=== PATIENT | male | born 1955 | race Caucasian/White ===

== ENCOUNTER 2021-09-16 08:41 | Emergency (ER) | payer MEDICARE ==
[2021-09-16 08:50] VITALS: RESP 18; TEMP 98.1
[2021-09-16] MEDS ORDERED: SODIUM CHLORIDE 0.9% 1,000 ML IV STA (08:53)
[2021-09-16] MEDS ORDERED: METOCLOPRAMIDE 5 MG/ML 2 ML VIAL IVP STA (08:53)
--- NOTE | 2021-09-16 09:11 | ED ---
Dizziness HPI - General Chief Complaint: Dizziness Stated Complaint: Dizziness, Nausea & vomiting Time Seen by Provider: 09/16/21 08:44 Source: patient, EMS, RN notes reviewed Mode of arrival: EMS - History of Present Illness Initial Comments: This is a 65-year-old male who presents to the emergency department for dizziness. Patient states that this began yesterday and came on gradually. This was triggered by positional changes and he describes a room spinning sensation. This morning when he woke up, the symptoms seemed worse. He again had the dizziness with a room spinning sensation and had associated nausea and vomiting. He has never had any similar symptoms in the past. Denies any associated diaphoresis, chest pain, or shortness of breath. Denies any recent illness or hx of heart attacks or strokes. Denies any fevers, chills, sore throat, cough, dyspnea, chest pain, palpitations, abdominal pain, diarrhea, back pain, or headaches. MD Complaint: dizziness Onset/Timin Timing: gradual onset Description: "room spinning", lightheadedness, off-balance History of Same: No History of Trauma: No Improves With: remaining still - Related Data Previous Rx's Medication Instructions Recorded Meclizine [Antivert] 25 mg PO TID PRN #20 tab 09/16/21 Metoclopramide [Reglan] 5 mg PO Q6H PRN #20 tab 09/16/21 Ondansetron [Zofran] 4 mg PO Q8HR PRN #20 tab 09/16/21 Allergies Allergy/AdvReac Type Severity Reaction Status Date / Time Penicillins AdvReac Unknown Verified 09/16/21 08:50 Review of Systems ROS Statement: Those systems with pertinent positive or pertinent negative responses have been documented in the HPI. ROS Other: All systems not noted in ROS Statement are negative. Past Medical History Past Medical History: Hypertension History of Any Multi-Drug Resistant Organisms: None Reported Past Surgical History: No Surgical Hx Reported Smoking Status: Current every day smoker Past Alcohol Use History: Daily Past Drug Use History: Marijuana General Exam General appearance: alert, in no apparent distress Head exam: Present: atraumatic, normocephalic, normal inspection Eye exam: Present: normal appearance, PERRL, EOMI. Absent: scleral icterus, conjunctival injection, periorbital swelling Pupils: Present: normal accommodation ENT exam: Present: normal exam, mucous membranes moist, TM's normal bilaterally, normal external ear exam Neck exam: Present: normal inspection. Absent: tenderness, meningismus, lymphadenopathy Respiratory exam: Present: normal lung sounds bilaterally. Absent: respiratory distress, wheezes, rales, rhonchi, stridor Cardiovascular Exam: Present: regular rate, normal rhythm, normal heart sounds. Absent: systolic murmur, diastolic murmur, rubs, gallop, clicks Neurological exam: Present: alert, oriented X3, CN II-XII intact, normal gait, other (Negative HINTS Exam) Psychiatric exam: Present: normal affect, normal mood Skin exam: Present: warm, dry, intact, normal color. Absent: rash Course Vital Signs 09/16/21 09/16/21 09/16/21 08:44 09:49 11:46 Temperature 98.1 F Pulse Rate 61 62 66 Respiratory 18 18 18 Rate Blood Pressure 154/85 145/84 134/81 O2 Sat by Pulse 97 95 96 Oximetry EKG Findings - EKG Comments: EKG Findings:: Normal sinus rhythm. Ventricular rate 62 bpm, ID interval 156 ms, QRS duration 84 ms, QTC 407 ms. Medical Decision Making - Medical Decision Making This is a 65-year-old male who presents to the emergency department for dizziness. Lab work was nonactionable, the patient exhibits no neurological deficits, and his EKG and troponin were both negative. HINTS exam for central lesion was negative. Based on the room spinning sensation and dizziness triggered by positional changes, this is most likely a vertigo. He reported marked improvement with IV fluids and Reglan. Prescription for Zofran, Reglan, and Antivert sent to the pharmacy for future episodes. Also advised he look into the half somersault maneuver by Dr. Yolanda Menendez for symptomatic management. Prior to discharge, patient states that he has been experiencing hot flashes intermittently for several months. Discussed that I will add thyroid studies to his lab work and contact him with the results if they are abnormal. He will otherwise follow up with his primary care provider regarding the vertigo and this complaint of hot flashes. Return precautions reviewed in depth, the patient is instructed to return to the emergency department with any new, worsening, or concerning symptoms. Patient verbalized understanding. This case was discussed in detail with the attending ED physician. Presentation, findings, and treatment plan discussed in detail as well. - Lab Data Result diagrams: 09/16/21 09:03 09/16/21 09:03 Lab Results 09/16/21 09/16/21 09/16/21 Range/Units 09:03 09:03 09:03 WBC 8.5 (3.8-10.6) k/uL RBC 4.49 (4.30-5.90) m/uL Hgb 14.1 (13.0-17.5) gm/dL Hct 41.8 (39.0-53.0) % MCV 93.1 (80.0-100.0) fL MCH 31.3 (25.0-35.0) pg MCHC 33.6 (31.0-37.0) g/dL RDW 13.0 (11.5-15.5) % Plt Count 275 (150-450) k/uL MPV 7.8 Neutrophils % 76 % Lymphocytes % 15 % Monocytes % 4 % Eosinophils % 3 % Basophils % 1 % Neutrophils # 6.5 (1.3-7.7) k/uL Lymphocytes # 1.3 (1.0-4.8) k/uL Monocytes # 0.4 (0-1.0) k/uL Eosinophils # 0.2 (0-0.7) k/uL Basophils # 0.1 (0-0.2) k/uL Sodium 136 L (137-145) mmol/L Potassium 4.1 (3.5-5.1) mmol/L Chloride 103 (98-107) mmol/L Carbon Dioxide 27 (22-30) mmol/L Anion Gap 6 mmol/L BUN 9 (9-20) mg/dL Creatinine 0.80 (0.66-1.25) mg/dL Est GFR (CKD-EPI)AfAm >90 (>60 ml/min/1.73 sqM) Est GFR (CKD-EPI)NonAf >90 (>60 ml/min/1.73 sqM) Glucose 120 H (74-99) mg/dL Plasma Lactic Acid Alexandro (0.7-2.0) mmol/L Calcium 8.9 (8.4-10.2) mg/dL Total Bilirubin 0.5 (0.2-1.3) mg/dL AST 48 (17-59) U/L ALT 27 (4-49) U/L Alkaline Phosphatase 109 (38-126) U/L Troponin I (0.000-0.034) ng/mL Total Protein 6.8 (6.3-8.2) g/dL Albumin 3.7 (3.5-5.0) g/dL Urine Color Light Yellow Urine Appearance Clear (Clear) Urine pH 5.5 (5.0-8.0) Ur Specific Sikes 1.009 (1.001-1.035) Urine Protein Negative (Negative) Urine Glucose (UA) Negative (Negative) Urine Ketones Negative (Negative) Urine Blood Negative (Negative) Urine Nitrite Negative (Negative) Urine Bilirubin Negative (Negative) Urine Urobilinogen <2.0 (<2.0) mg/dL Ur Leukocyte Esterase Negative (Negative) Urine Opiates Screen Detected H (NotDetected) Ur Oxycodone Screen Not Detected (NotDetected) Urine Methadone Screen Not Detected (NotDetected) Ur Propoxyphene Screen Not Detected (NotDetected) Ur Barbiturates Screen Not Detected (NotDetected) U Tricyclic Antidepress Not Detected (NotDetected) Ur Phencyclidine Scrn Not Detected (NotDetected) Ur Amphetamines Screen Not Detected (NotDetected) U Methamphetamines Scrn Not Detected (NotDetected) U Benzodiazepines Scrn Detected H (NotDetected) Urine Cocaine Screen Not Detected (NotDetected) U Marijuana (THC) Screen Detected H (NotDetected) 09/16/21 09/16/21 Range/Units 09:03 09:03 WBC (3.8-10.6) k/uL RBC (4.30-5.90) m/uL Hgb (13.0-17.5) gm/dL Hct (39.0-53.0) % MCV (80.0-100.0) fL MCH (25.0-35.0) pg MCHC (31.0-37.0) g/dL RDW (11.5-15.5) % Plt Count (150-450) k/uL MPV Neutrophils % % Lymphocytes % % Monocytes % % Eosinophils % % Basophils % % Neutrophils # (1.3-7.7) k/uL Lymphocytes # (1.0-4.8) k/uL Monocytes # (0-1.0) k/uL Eosinophils # (0-0.7) k/uL Basophils # (0-0.2) k/uL Sodium (137-145) mmol/L Potassium (3.5-5.1) mmol/L Chloride (98-107) mmol/L Carbon Dioxide (22-30) mmol/L Anion Gap mmol/L BUN (9-20) mg/dL Creatinine (0.66-1.25) mg/dL Est GFR (CKD-EPI)AfAm (>60 ml/min/1.73 sqM) Est GFR (CKD-EPI)NonAf (>60 ml/min/1.73 sqM) Glucose (74-99) mg/dL Plasma Lactic Acid Alexandro 0.9 (0.7-2.0) mmol/L Calcium (8.4-10.2) mg/dL Total Bilirubin (0.2-1.3) mg/dL AST (17-59) U/L ALT (4-49) U/L Alkaline Phosphatase (38-126) U/L Troponin I <0.012 (0.000-0.034) ng/mL Total Protein (6.3-8.2) g/dL Albumin (3.5-5.0) g/dL Urine Color Urine Appearance (Clear) Urine pH (5.0-8.0) Ur Specific Sikes (1.001-1.035) Urine Protein (Negative) Urine Glucose (UA) (Negative) Urine Ketones (Negative) Urine Blood (Negative) Urine Nitrite (Negative) Urine Bilirubin (Negative) Urine Urobilinogen (<2.0) mg/dL Ur Leukocyte Esterase (Negative) Urine Opiates Screen (NotDetected) Ur Oxycodone Screen (NotDetected) Urine Methadone Screen (NotDetected) Ur Propoxyphene Screen (NotDetected) Ur Barbiturates Screen (NotDetected) U Tricyclic Antidepress (NotDetected) Ur Phencyclidine Scrn (NotDetected) Ur Amphetamines Screen (NotDetected) U Methamphetamines Scrn (NotDetected) U Benzodiazepines Scrn (NotDetected) Urine Cocaine Screen (NotDetected) U Marijuana (THC) Screen (NotDetected) Disposition Clinical Impression: BPPV (benign paroxysmal positional vertigo) Disposition: HOME SELF-CARE Instructions (If sedation given, give patient instructions): Vertigo (ED), Benign Paroxysmal Positional Vertigo (ED), Dizziness (ED) Additional Instructions: Return to the emergency department with any new, worsening, or concerning symptoms. Change positions slowly to prevent the dizziness from becoming exacerbated. If the dizziness recurs, try taking the Reglan or Antivert. If one of those is not effective, try taking the other one. You can also look up the half somersault maneuver by Dr. Yolanda Menendez online, which is another treatment option. Take the Zofran as needed for episodes of nausea/vomiting only, it will most likely not help with the dizziness. Follow up with your primary care provider next week. Prescriptions: Meclizine [Antivert] 25 mg PO TID PRN #20 tab PRN Reason: Vertigo Metoclopramide [Reglan] 5 mg PO Q6H PRN #20 tab PRN Reason: Nausea And Vomiting Ondansetron [Zofran] 4 mg PO Q8HR PRN #20 tab PRN Reason: Nausea And Vomiting Is patient prescribed a controlled substance at d/c from ED?: No Referrals: None,Stated [REFERRING] - 1-2 days
[2021-09-16 09:18] LABS: Basophils # (A) 0.1 k/uL (0-0.2); Basophils % (A) 1 %; Eosinophils # (A) 0.2 k/uL (0-0.7); Eosinophils % (A) 3 %; HCT 41.8 % (39.0-53.0); HGB 14.1 gm/dL (13.0-17.5); Lymphocytes # (A) 1.3 k/uL (1.0-4.8); Lymphocytes % (A) 15 %; MCH 31.3 pg (25.0-35.0); MCHC 33.6 g/dL (31.0-37.0); MCV 93.1 fL (80.0-100.0); Mean Platelet Volume 7.8; Monocytes # (A) 0.4 k/uL (0-1.0); Monocytes % (A) 4 %; Neutrophils # (A) 6.5 k/uL (1.3-7.7); Neutrophils % (A) 76 %; Platelet Count 275 k/uL (150-450); RBC 4.49 m/uL (4.30-5.90); WBC 8.5 k/uL (3.8-10.6)
[2021-09-16 09:21] LABS: ALT 27 U/L (4-49); AST 48 U/L (17-59); African American GFR (CKD) >90 (>60 ml/min/1.73 sqM); Albumin 3.7 g/dL (3.5-5.0); Alkaline Phosphatase 109 U/L (38-126); Anion Gap 6 mmol/L; Blood Urea Nitrogen 9 mg/dL (9-20); Calcium 8.9 mg/dL (8.4-10.2); Carbon Dioxide 27 mmol/L (22-30); Chloride 103 mmol/L (98-107); Glucose 120 mg/dL (74-99); Non-African American GFR(CKD) >90 (>60 ml/min/1.73 sqM); Potassium 4.1 mmol/L (3.5-5.1); Sodium 136 mmol/L (137-145); Total Bilirubin 0.5 mg/dL (0.2-1.3); Total Protein 6.8 g/dL (6.3-8.2)
[2021-09-16 11:17] LABS: Appearance,Urine Clear (Clear); Bilirubin,Urine Negative (Negative); Blood,Urine Negative (Negative); Color,Urine Light Yellow; Glucose,Urine (UA) Negative (Negative); Ketones,Urine Negative (Negative); Leukocyte Esterase,Urine Negative (Negative); Nitrite,Urine Negative (Negative); PH, Urine 5.5 (5.0-8.0); Protein,Urine Negative (Negative); Specific Gravity,Urine 1.009 (1.001-1.035); Urobilinogen,Urine <2.0 mg/dL (<2.0)
[2021-09-16 11:29] LABS: Amphetamine Screen,Urine Not Detected (NotDetected); Benzodiazepines Screen,Urine Detected (NotDetected); Cocaine Screen,Urine Not Detected (NotDetected); Methadone Screen, Urine Not Detected (NotDetected); Opiate Screen,Urine Detected (NotDetected); Phencyclidine Screen,Urine Not Detected (NotDetected); Tricyclic Antidepressant,Urine Not Detected (NotDetected); Urn Cannabinoid Scrn Detected (NotDetected)
[2021-09-16 11:30] LABS: Barbiturate Screen,Urine Not Detected (NotDetected); Oxycodone Screen, Urine Not Detected (NotDetected)
[2021-09-16 11:47] VITALS: BP 134/81; PULSE 66
== END 2021-09-16 11:52 | disposition home or self-care (01) ==
LOC: EDBD → EC 08:41
DX: H81.10 Benign paroxysmal vertigo, unspecified ear (principal); I10 Essential (primary) hypertension; F17.200 Nicotine dependence, unspecified, uncomplicated; Z88.0 Allergy status to penicillin
CPT/HCPCS: 36415; 93005; 80053; 84443; 83605; 84484; 85025; 81003; 80306; 99284; 96374; 96361; J2765